=== PATIENT | male | born 1985 | race African-American/Black ===

== ENCOUNTER 2016-10-25 17:21 | Emergency (ER) | payer OTHER ==
--- NOTE | ~2016-10-25 | EKG ---
PATIENT: CARL NEGRON UNIT #: [id number] Ventricular Rate: 65 BPM Atrial Rate: 65 BPM P-R Interval: 144 ms QRS Duration: 80 ms Q-T Interval: 372 ms QTC Calculation(Bezet): 386 ms P [place]: 71 degrees Calculated R [place]: 65 degrees Calculated T [place]: 40 degrees Diagnosis Line: Normal sinus rhythm with sinus arrhythmia Diagnosis Line: Normal ECG Diagnosis Line: When compared with ECG of 24-FEB-2009 17:00, Diagnosis Line: No significant change was found Diagnosis Line: Confirmed by LATISHA LACEY MD ([id number]) on 10/27/2016 Diagnosis Line: 10:21:34 AM INTERPRETING MD: DEEPTHI GREGORIO
[~2016-10-25 17:21] MED LIST: CLEOCIN PO; ERYTHROMYCIN B500 MG PO; IBUPROFEN800 MG PO; LORTAB 5/500 TA1 TA1 PO; MOTRIN PO
== END 2016-10-25 18:31 | disposition home or self-care (01) ==
LOC: SED 17:21
DX: M54.5 Low back pain (principal); R07.89 Other chest pain
CPT/HCPCS: 93005; 96372; 99283; J1885

== ENCOUNTER 2016-11-02 20:14 | Emergency (ER) | payer OTHER ==
[2016-11-02 22:42] LABS: URINE APPEARANCE CLEAR; URINE BILIRUBIN NEG (NEG); URINE BLOOD NEG (NEG); URINE COLOR YELLOW; URINE GLUCOSE NEG (NEG); URINE KETONE TRACE (NEG); URINE LEUKOCYTE ESTERASE NEG (NEG); URINE NITRATE NEG (NEG); URINE PH 5.5 (5-8); URINE PROTEIN NEG (NEG); URINE SPECIFIC GRAVITY 1.027 (1.003-1.035)
[2016-11-02 22:43] LABS: CULTURE INDICATED? NO
[2016-11-02 22:54] LABS: BUN/CREATININE RATIO 18.33; CALCIUM SERUM 9.2 mg/dL (8.4-10.2); CREATININE SERUM 0.6 mg/dL (0.6-1.4); GLOM FILT RATE Estimated 154.3 mL/min (>60); POTASSIUM 3.6 mmol/L (3.5-5.1)
== END 2016-11-02 23:40 | disposition home or self-care (01) ==
LOC: CED 20:14 → CFTX 20:14
PROVIDERS: Nurse Practitioner Family
DX: R10.9 Unspecified abdominal pain (principal); M54.5 Low back pain; R50.9 Fever, unspecified; F17.290 Nicotine dependence, other tobacco product, uncomplicated; Z88.0 Allergy status to penicillin
CPT/HCPCS: 36415; 80048; 81003; 99284